=== PATIENT | female | born 1980 | race Caucasian/White ===

== ENCOUNTER → 2016-04-09 | Emergency (ER) | payer MEDICAID | END | disposition left against medical advice (07) | LOC: CED 14:06 | DX: M25.511 Pain in right shoulder (principal); Z53.9 Procedure and treatment not carried out, unspecified reason ==

== ENCOUNTER 2016-05-10 16:55 | Emergency (ER) | payer MEDICAID ==
[2016-05-10 17:16] VITALS: PULSE 88; RESP 14; TEMP 97.7; O2SAT 96
--- NOTE | 2016-05-10 17:22 | UCPHY ---
H & P Time Seen by Provider: 05/10/16 17:08 Patient Type: Established HPI/ROS: Chief complaint: Pressure over the sinuses HPI: 36-year-old female in prior good health. Has not had any antecedent URI but did have some sinus plugging by way of allergy with itchy eyes. This been going on for about 2-3 weeks. Beginning 3-4 days ago she started with pressure over the sinuses. She notes is quite discomforting when she leans forward. She has had no fevers or chills however. She did have a cases sinus infection in the past treated with clindamycin approximately 4 5 years ago Review systems: Constitutional - no fevers or chills. Eyes - no discharge, or injection ENT - no earache, change in hearing, difficulty swallowing, sore throat. Respiratory - No Shortness of breath, phlegm, wheezing or pleuritic chest pain. The cough is dry Musculoskeletal - no joint or muscle pain. Integument - no rashes. Neurological - no headache, numbness, tingling, or paresthesias. No focal motor weakness. Immunological - no swelling or lymphadenopathy Ten review of systems completed and otherwise negative Physical Exam: Gen: Well developed, well nourished. Nontoxic. HEENT: Normocephalic. Ears: TMs are clear. Hearing normal. Eyes: PERRL. No conjunctival injection or pallor. no jaundice. Nose: No nasal discharge. Sinuses are tender to palpation over the cheeks, the maxillary sinuses Throat: Membranes are moist. Oropharynx is without erythema or exudate. Normal phonation. Lungs: Good air entry into both lungs. No rales rhonchi or wheezes. No air hunger. No respiratory distress. Skin: Good color, without pallor. There is no diaphoresis. Skin is warm and dry , without diaphoresis. [Intact without rashes] Constitutional: Initial Vital Signs Temperature (C) 36.5 C 05/10/16 17:14 Heart Rate 88 05/10/16 17:14 Respiratory Rate 14 05/10/16 17:14 Blood Pressure 155/95 H 05/10/16 17:14 O2 Sat (%) 96 05/10/16 17:14 O2 Delivery Mode Room Air Allergies/Adverse Reactions: codeine Allergy (Verified 05/10/16 17:12) Penicillins Allergy (Verified 05/10/16 17:12) Home Medications: Medication Instructions Recorded Dilantin (RX) 06/07/15 Lipitor 10 mg (RX) 06/07/15 Xanax 0.25 MG (RX) 06/07/15 Doxycycline Monohydrate [Avidoxy] 100 mg PO BID #20 tablet 05/10/16 Medical Decision Making ED Course/Re-evaluation: Diagnostic considerations include, but are not limited to, the following: Otitis media, URI, sinusitis, pharyngitis, pneumonia. Departure - Departure Disposition: Home, Routine, Self-Care Clinical Impression: Acute sinusitis Qualifiers: Qualifier Code: (J01.00) Acute maxillary sinusitis, unspecified Condition: Good Instructions: Sinusitis (ED) Additional Instructions: You may take Afrin, but only for 3 days Tylenol ibuprofen Referrals: Amee Joseph DO [Primary Care Provider] - As per Instructions Prescriptions: Doxycycline Monohydrate [Avidoxy] 100 mg PO BID #20 tablet - PQRS PQRS Measurement: Not applicable
[2016-05-10 17:41] VITALS: BP 136/82
== END 2016-05-10 17:41 | disposition home or self-care (01) ==
LOC: CED 16:55
DX: J01.00 Acute maxillary sinusitis, unspecified (principal)
CPT/HCPCS: 99214-PO; G0463-PO

== ENCOUNTER 2016-10-09 15:33 | Emergency (ER) | payer MEDICAID | END 2016-10-09 16:05 | disposition left against medical advice (07) | LOC: CED 15:33 | DX: Z53.21 Procedure and treatment not carried out due to patient leaving prior to being seen by health care provider (principal) ==

== ENCOUNTER 2017-01-08 17:53 | Emergency (ER) | payer MEDICAID ==
[2017-01-08 18:06] VITALS: RESP 16; TEMP 97.5; O2SAT 96
[2017-01-08] MEDS ORDERED: IBUPROFEN 600 MG TAB PO ONE (18:24)
--- NOTE | 2017-01-08 19:13 | EDPHY ---
H & P Time Seen by Provider: 01/08/17 18:18 HPI/ROS: This patient describes atraumatic left calf pain of 2 weeks duration with 3/10 intensity that worsens when she walked. She felt like there is very slight swelling associated without pain and today she had abrupt worsening of the calf pain with a pop sensation while walking to the same area-posterior proximal calf. There is no significant trauma antecedent to the injury other than walking. She reports now having moderate pain at baseline and severe pain when she attempts to walk. She has no other associated symptoms. She has never had this pain before the past 2 weeks. ROS: Constitutional: No fevers or chills Pulmonary: No shortness of breath or pleuritic pain Cardiovascular: No heart palpitations or lightheadedness. No pallor plethora to the affected leg per patient Neuro: No numbness or tingling Musculoskeletal: No significant trauma. No knee pain associated with this. No other musculoskeletal complaints. No recent quinolone antibiotics. No recent prolonged immobilization. No recent surgeries. 7 point ROS is otherwise negative. Past Medical/Surgical History: No prior DVT. Epilepsy Hypercholesterolemia Family history is negative for DVT or PE. Social History: No recent prolonged travel or immobilization Smoking Status: Former smoker Physical Exam: Physical Exam Vital signs are normal. General: No acute distress Lungs: No respiratory distress. Cardiac: Brisk capillary refill is intact throughout. Pulses are 2+ and symmetric in the affected extremity. No pallor plethora to the affected extremity. Extremities: Atraumatic normal except for left leg Left leg: Patient has posterior calf tenderness to the affected left calf. Positive Homans test. No gross deformity. No erythema. No warmth to touch. No associated knee swelling or tenderness. No Achilles tenderness. Skin: No rash or pallor. Neuro: Alert and oriented x3 with no sensorimotor deficits. Initial differential diagnosis: Calf muscle strain, DVT, calf muscle rupture or tendon rupture Constitutional: Initial Vital Signs Temperature (C) 36.4 C 01/08/17 18:01 Heart Rate 92 01/08/17 18:01 Respiratory Rate 16 01/08/17 18:01 Blood Pressure 132/97 H 01/08/17 18:01 O2 Sat (%) 96 01/08/17 18:01 O2 Delivery Mode Room Air Allergies/Adverse Reactions: codeine Allergy (Verified 01/08/17 18:00) Penicillins Allergy (Verified 01/08/17 18:00) Home Medications: Medication Instructions Recorded Dilantin (RX) 06/07/15 Lipitor 10 mg (RX) 06/07/15 Xanax 0.25 MG (RX) 06/07/15 Lidocaine 5% [Lidoderm 5% Patch 1 ea TD DAILY #15 patch 01/08/17 (*)] MDM/Departure - MDM Diagnostics: Doppler ultrasound of leg: Negative for DVT per Bob Vaz-radiologist who read the study. No other remarkable findings. Imaging Results: Imaging Impressions Extremity Venous Study 01/08/17 18:25 Impression: No evidence of deep vein thrombosis in the left lower extremity. Results called and discussed with Dr. JESSI HAUSER on 01/08/2017 at 19:29 Medications Given: Discontinued Medications Ibuprofen (Motrin) 600 mg PO EDNOW ONE Stop: 01/08/17 18:25 Last Admin: 01/08/17 19:26 Dose: 600 mg ED Course/Re-evaluation: Discussion: Patient with a 2 week history of atraumatic calf pain abruptly worsened while walking-likely a calf muscle strain with deconditioning with muscle tear tonight. No obvious risk factors for tendon rupture-no recent quinolone use or other. No bony tenderness to the region of the fibula or tibia. Doubt bony abnormality. She is neurovascularly intact. I counseled regarding muscle strain with plan to use ibuprofen, Tylenol stretching, Sharath wrap , ice, follow up with primary care physician. - Depart Disposition: Home, Routine, Self-Care Clinical Impression: Strain of calf muscle Qualifiers: Encounter type: initial encounter Laterality: left Qualified Code(s): S86.812A - Strain of other muscle(s) and tendon(s) at lower leg level, left leg, initial encounter Condition: Good Instructions: Muscle Strain (ED) Additional Instructions: Diagnosis: Calf muscle strain Your ultrasound of the calf today revealed no blood clot or other concerning findings Plan: Ice to sit time 3 times a day for the next week. Limit activity until he feel improved. Cane or crutches if needed for ambulation Gentle stretching as described. Follow up with primary care physician for any ongoing symptoms. Prescriptions: Lidocaine 5% [Lidoderm 5% Patch (*)] 1 ea TD DAILY #15 patch Referrals: NONE *PRIMARY CARE P,. [Primary Care Provider] - As per Instructions
[2017-01-08 20:36] VITALS: BP 136/83; PULSE 76
== END 2017-01-08 19:50 | disposition home or self-care (01) ==
LOC: CED 17:53
DX: S86.812A Strain of other muscle(s) and tendon(s) at lower leg level, left leg, initial encounter (principal); Z87.891 Personal history of nicotine dependence; X58.XXXA Exposure to other specified factors, initial encounter
CPT/HCPCS: 93971-PO

== ENCOUNTER 2017-12-03 07:49 | Emergency (ER) | payer MEDICAID ==
[2017-12-03 08:02] VITALS: BP 143/98
--- NOTE | 2017-12-03 08:16 | EDPHY ---
H & P Stated Complaint: Bilat ear pain,ST x2 days. Denies fever. Time Seen by Provider: 12/03/17 08:02 HPI/ROS: Chief Complaint: Ear pain HPI: 29-year-old woman presenting with 2 days of worsening bilateral ear pain. Patient states that it started after she had a deep cleaning of her lower teeth by her dentist a week ago. Is no fevers or chills. No hearing changes. She has had ear infections in the past. She is concerned that she might have an ear infection today as this will prevent her from having her 2nd cleaning which is scheduled for this afternoon. Mild sore throat. No difficulty swallowing. No fevers or chills. No cough. ROS: 10 point Review of Systems is negative except as noted in the HPI. PMH: Denies Social History: No smoking, no alcohol, no recreational drug use Family History: non-contributory Physical Exam: Gen: Awake, Alert, No Distress HEENT: Ears: Scant cerumen bilaterally, ear canals are normal, tympanic membranes are normal Nose: no rhinorrhea Eyes: PERRLA, EOMI Mouth: Moist mucosa mild left-sided temporomandibular joint click, no trismus, oropharynx is normal, no dental tenderness, no gingival erythema Neck: Supple, no JVD, no lymphadenopathy Skin: no rash Neuro: CN II-XII intact, Sensation grossly intact, Strength 5/5 in bilateral upper and lower extremities - Personal History LMP (Females 10-55): Hysterectomy Current Tetanus Diphtheria and Acellular Pertussis (TDAP): Yes Tetanus Vaccine Date: 2011 - Medical/Surgical History Hx Asthma: No Hx Chronic Respiratory Disease: No Hx Diabetes: No Hx Cardiac Disease: No Hx Renal Disease: No Hx Cirrhosis: No Hx Alcoholism: No Hx HIV/AIDS: No Hx Splenectomy or Spleen Trauma: No Other PMH: med hx-seizures,cholesterol,anxiety. [id number] - Social History Smoking Status: Former smoker Constitutional: Initial Vital Signs Temperature (C) 36.7 C 12/03/17 07:58 Heart Rate 76 12/03/17 07:58 Respiratory Rate 16 12/03/17 07:58 Blood Pressure 143/98 H 12/03/17 07:58 O2 Sat (%) 95 12/03/17 07:58 O2 Delivery Mode Room Air Allergies/Adverse Reactions: codeine Allergy (Verified 12/03/17 07:57) Penicillins Allergy (Verified 12/03/17 07:57) Home Medications: Medication Instructions Recorded Dilantin (RX) 06/07/15 Lipitor 10 mg (RX) 06/07/15 Xanax 0.25 MG (RX) 06/07/15 Medical Decision Making ED Course/Re-evaluation: 29-year-old woman with bilateral otalgia, no signs of infection. I suspect this is likely from her temporomandibular joints. No signs of dental infection. She has an appoint with her dentist today. Departure - Departure Disposition: Home, Routine, Self-Care Clinical Impression: Otalgia of both ears Condition: Good Instructions: Earache (ED) Additional Instructions: You may use Cerumenex or other [id number] ear wax medications for cleaning her ears. Follow up with your dentist today as scheduled. Referrals: Carlota Chaves MD [Medical Doctor] - As per Instructions
== END 2017-12-03 08:21 | disposition home or self-care (01) ==
LOC: CED 07:49
DX: H92.03 Otalgia, bilateral (principal); Z87.891 Personal history of nicotine dependence; Z86.69 Personal history of other diseases of the nervous system and sense organs

== ENCOUNTER 2017-12-22 16:51 | Emergency (ER) | payer MEDICAID ==
--- NOTE | 2017-12-22 17:01 | EDPHY ---
ED Progress Note Narrative: Patient alert and has capacity to make decisions regarding her care. Offered medical screening exam and she declined. Wanted referral to dentist who can address her problem.
== END 2017-12-22 17:10 | disposition left against medical advice (07) ==
LOC: CED 16:51
DX: K08.89 Other specified disorders of teeth and supporting structures (principal)